=== PATIENT | female | born 1950 | race Asian ===

== ENCOUNTER 2016-09-28 00:37 | Emergency (ER) | payer OTHER ==
--- NOTE | 2016-09-28 03:30 | ED NURSING NOTES ---
Clinical Report - Nurses [facility] [address] [place] [address] 09/28/2016 0:38 Patient: MIYA WHITFIELD TRIAGE Triage time 00:42. Acuity: LEVEL 3. Chief Complaint: (L sided back pain). 01:04 09/28/16. Alert. No acute distress. SEPSIS SCREEN: Sepsis Screen. Negative (no infection suspected/documented). CHRISTINA COMA SCORE: [place] Coma Scale: 15- eyes open spontaneously (4); best verbal response- oriented x 4 (5); best motor response- obeys commands (6). --01:04 Maria Luisa Van R.N. 00:50 09/28/16. BP: 135/55. HR: 106. RR: 20. O2 saturation: 93%. Temp: 98.6 F. Pain level now: 02/17. --01:04 Maria Luisa Van R.N. <<STRICKEN ENTRY-- 00:50 09/28/16. BP: 135/55. HR: 106. RR: 16. O2 saturation: 93%. Temp: 98.6 F. Pain level now: 02/17. --01:04 Maria Luisa Van R.N. --END STRIKE>> Correction. --01:06 Maria Luisa Van R.N. Weight: 79.3 kg stated. Height/Length: 61 inches Per Patient. BMI: 33. --01:00 Maria Luisa Van R.N. Medications OxyCODONE HCl Oral. --00:54 Maria Luisa Van R.N. methylcarbomol. --00:55 Maria Luisa Van R.N. History Arrived by private vehicle. Historian: patient and family. Accompanied by (significant other). Onset. (one month). ( Patient states the back pain "used to come and go. But today it's like hell regardless of medication"). 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 PAST MEDICAL HX: Immunizations: up-to-date. SOCIAL HX: Smoker- current status unknown (patient states she smokes every once in a while). No alcohol use or drug use. FALL RISK ASSESSMENT: Fall risk assessment completed. No fall risk identified. NUTRITIONAL RISK ASSESSMENT: The nutritional risk assessment revealed no deficiencies. FUNCTIONAL ASSESSMENT: Functional assessment: no impairments noted. LEARNING NEEDS ASSESSMENT: The learning needs assessment revealed no barriers. SKIN INTEGRITY ASSESSMENT: Skin integrity risk assessment completed. No skin integrity risk identified. --01:04 Maria Luisa Van R.N. PROBLEMS: Cancer. Lung Disease. Diabetes Mellitus. SOB. Radiation for ca. . Chemo x 2 . Pneumonia. COPD - Chronic Obstructive Pulmonary Disease. Back pain with sciatica. 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 Hyperlipidemia. Anxiety Reaction. Asthma. Insomnia. Cough. Hyperglycemia. Diabeties. Hypertension. GERD. --00:59 Maria Luisa Van R.N. ADDITIONAL SURGERIES: Appendectomy. . --00:59 Maria Luisa Van R.N. Interventions ID band on patient. To treatment room. --01: Maria Luisa Van R.N. PHYSICAL ASSESSMENT 01:09/28/16. To room via wheelchair. GENERAL / NEURO / PSYCH: Alert. Oriented X 4. Appears in pain. HEENT: No facial asymmetry noted. Mucous membranes are pink. RESPIRATORY: Mild respiratory distress. Respirations not labored. Expiratory wheezes in the right and left upper lung. CVS: Capillary refill less than 2 seconds. Pulses within normal limits. GI / : Abdomen nontender and normal bowel sounds. SKIN: Skin intact. Skin is warm and dry. Normal skin turgor. --01:06 Maria Luisa Van R.N. NURSING PROGRESS NOTES 01:09/28/16. Two patient identifiers checked. Call light placed in reach. Side rails up x 1. Bed placed in lowest position. Brakes of bed on. Patient ready for evaluation- chart flagged and notification provided. --01:07 Maria Luisa Van R.N. Pulse oximeter and NIBP monitor placed on patient. --01: Maria Luisa Van R.N. 02:18 09/28/2016 Dilaudid (HYDROmorphone HCl PF) IM 0.5 mg given. Given in the right deltoid. Allergies verified, confirmed 5 rights and sedative warning given to the patient. --02:20 Maria Luisa Van R.N. 02:20 09/28/2016 Toradol (Ketorolac Tromethamine) IM 60 mg given. Given in the right anterior lateral thigh. Allergies verified and confirmed 5 rights. --02:20 Maria Luisa Van R.N. 02:45 09/28/16. BP: 126/74. HR: 98. RR: 17. O2 saturation: 95%. Temp: deferred. Pain level now: 0/10. --03:10 Maria Luisa Van R.N. Reassessment after medication administered. She reports no complaints. Overall patient status is improved- she states feels better. Patient informed about reason for wait and about plan of care. --03:10 Maria Luisa Van R.N. 03:11 09/28/2016 Dilaudid IM Response: no adverse reaction pain is gone now. The patient feels better. 09/28/2016 02:45 BP: 126/74. HR: 98. RR: 17. O2 saturation: 95%. Pain level now: 0/10. --03:11 Maria Luisa Van R.N. 03:11 09/28/2016 Toradol IM Response: no adverse reaction pain is gone now. The patient feels better. 09/28/2016 02:45 BP: 126/74. HR: 98. RR: 17. O2 saturation: 95%. Pain level now: 0/10. --03:11 Maria Luisa Van R.N. DISPOSITION / DISCHARGE 03:40 09/28/16. Condition at departure: improved and stable. The goals identified in the patient's plan of care were met. No learning barriers present. Discharge instructions provided and reviewed with the patient. Activity restrictions (light lifting) reviewed. Note given. Patient verbalized understanding. Written instructions provided in Burkinan. ( Follow up with your PCP in five days if you are not feeling better. Return if your symptoms worsen. Apply ice for twenty minutes at a time. Moist heat may help as well. Take an anti-inflammatory as needed and rest. Patient verbalized understanding and had no additional questions at this time.). The patient was discharged by the physician. She was discharged home and accompanied by scientist/engineer. She left the Emergency Department ambulatory and via private vehicle. Care Assistant driving. FALL RISK ASSESSMENT: Fall risk assessment completed. No fall risk identified. --04:04 Kya Darby 03:40 09/28/16. BP: 112/52. HR: 98. RR: 20. O2 saturation: 98% on room air. Pain level now: 0/10. --04:04 Kya Darby. Locked/Released at 09/28/2016 4:05 by Kya Darby,
--- NOTE | 2016-09-28 03:30 | ED ORDER SUMMARY ---
..... Patient: MIYA WHITFIELD OrderSheet [facility] VisitID: [id number] [address] [place] [address] 65y, F Registration Date/Time: 09/28/2016 ORDER SHEET Weight: 79.3 kg (stated) Allergies: Latex GENERAL ORDERS: Lumbar Spine 2 or 3V Urgent (02:00 09/28/2016 Ashley GRAHAM) (Ack 2:07 AMcQuoid ER Tech1) (2:12 RFay) MEDICATION ORDERS: Toradol IM 60 mg (NOW) (02:01 09/28/2016 Ashley GRAHAM) (Ack 2:11 RMarsden R.N.) (2:20 RMarsden R.N.) Dilaudid IM 0.5 mg (NOW) (02:01 09/28/2016 Ashley GRAHAM) (Ack 2:11 RMarsden R.N.) (2:20 RMarsden R.N.) IV FLUIDS: ORDER SHEET NOTES: [Electronically signed by Kya Darby (04:05 09/28/2016)] [Electronically signed by Yao Ludwig MD (22:06 10/01/2016)] [Electronically locked/signed by Kya Darby (04:09/28/2016)]
--- NOTE | 2016-09-28 03:30 | ED CLINICAL REPORT ---
Clinical Report - Physicians/Mid Levels [facility] [address] [place] [address] 09/28/2016 0:38 Patient: MIYA WHITFIELD Time Seen: 01:52 Sep 28 2016. Arrived- By private vehicle. Historian- patient. CPT: ER phys charges level 4 (#[id number]). HISTORY OF PRESENT ILLNESS Chief Complaint: BACK PAIN. It is described as being moderate in degree and in the area of the left lower lumbar spine and lower lumbar spine. The quality is noted to be sharp, aching, "pain" and similar to prior episodes. No radiation. Onset was today Onset. (one month). ( Patient states the back pain "used to come and go. But today it's like hell regardless of medication"). and it is still present. No bladder dysfunction, bowel dysfunction, sensory loss or motor loss. No other injury. Similar symptoms previously: Several times, milder. Recent medical care: Not recently seen/assessed. REVIEW OF SYSTEMS No fever, chills, eye irritation, difficulty with urination or urinary frequency. No hematuria, skin rash, sore throat, cough or difficulty breathing. No chest pain, abdominal pain, nausea, vomiting or diarrhea. No black stools or bloody stools. All systems otherwise negative, except as recorded above. PAST HISTORY Cancer. Lung Disease. Diabetes Mellitus. SOB. Radiation for ca. . Chemo x 2 . Pneumonia. COPD - Chronic Obstructive Pulmonary Disease. Back pain with sciatica. 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 Hyperlipidemia. Anxiety Reaction. Asthma. Insomnia. Cough. Hyperglycemia. Diabeties. Hypertension. GERD. --00:59 Maria Luisa Van R.N. ADDITIONAL SURGERIES: Appendectomy. . Medications: Albuterol Sulfate Inhalation. Albuterol Sulfate Inhalation. Albuterol Sulfate Inhalation. Atrovent HFA Inhalation. Benzonatate Oral 100 mg, daily. Centrum. Citalopram & Diet Manage Prod Oral (Miscellaneous 10 mg) 20mg (1.5tablets day). Cyclobenzaprine HCl Oral 5 mg, at bedtime. Docusate Sodium Oral (Capsule 250 mg) 1 capsule, BID. Fluticasone Propionate HFA Inhalation 500-50mcg/puff (one puff BID). Gabapentin Oral 300 mg (one in AM and 2 at PM). HydrOXYzine HCl Oral 25 mg, at bedtime as needed. Ibuprofen Oral (Tablet 800 mg) 1 tablet, as needed. Insulin Regular Human Injection, Taken on sliding scale. LORazepam Oral 1 mg, 2x a day as needed. Magnesium Oral 400 mg, daily. MetFORMIN HCl Oral (Tablet 1000 mg) 1 tablet, 2x a day. Nortriptyline HCl Oral 10 mg, at bedtime. OxyCODONE HCl Oral 5 mg, 1-2 tabs. methylcarbomol. OxyCODONE HCl Oral. Allergies: Latex. SOCIAL HISTORY Light tobacco smoker (cigarette)- less than 1/2 a pack per day. No alcohol use or drug use. ADDITIONAL NOTES The nursing notes have been reviewed. PHYSICAL EXAM Vital Signs: 09/28/2016 00:50 BP: 135/55. HR: 106. RR: 20. O2 saturation: 93%. Temp: 98.6 F. Pain level now: 02/17. Appearance: Alert. Appears to be in pain. Patient in moderate distress. HEENT: Normal external inspection. ENT: Pharynx normal. Neck: Normal inspection. Neck nontender. Painless ROM. CVS: Heart sounds normal. Pulses normal. Respiratory: No respiratory distress. Breath sounds normal. Abdomen: No visible injury. Soft and nontender. Bowel sounds normal. Back: Moderate soft tissue tenderness in the right lower and left lower lumbar area. Limited ROM in the back. No muscle spasm in the back, vertebral point tenderness or CVA tenderness. Skin: Skin warm. Normal skin color. No rash. Extremities: Extremities exhibit normal ROM. Extremities nontender. Neuro: Oriented X 3. Mood/affect normal. No motor deficit. No sensory deficit. Reflexes normal. LABS, X-RAYS, AND EKG LS-Spine X-rays: Degenerative joint disease. (Mild listhesis L4-5 level.). Views: AP, lateral and coned down view. Technique: good. The X-rays were independently viewed by me and interpreted contemporaneously by me. PROGRESS AND PROCEDURES Course of Care: toradol 60 mg IM Dilaudid 0.5 mg IM Patient is stable. Symptoms better. Patient/family counseled. Disposition: Discharged. Condition: stable and improved. CLINICAL IMPRESSION Acute and chronic nontraumatic back pain associated with degenerative disc disease of the lumbar spine. Sciatica present on the left. No radiculopathy or neurological deficit. Acute exacerbation of chronic low back pain with sciatica. INSTRUCTIONS Apply ice for 15-20 minutes three times a day for one days followed by moist heat 15-20 minutes three times a day for one weeks until better. Limit lifting. No strenuous activity. Warnings: SEDATIVE MEDICATION: You were given sedative medication during your visit. Do not drive or operate dangerous machinery. GENERAL WARNINGS: Return or contact your physician immediately if your condition worsens or changes unexpectedly, if not improving as expected, or if other problems arise. Your Current Medications: CONTINUE TAKING THE FOLLOWING MEDICATIONS: Albuterol Sulfate Inhalation. Albuterol Sulfate Inhalation. Albuterol Sulfate Inhalation. Atrovent HFA Inhalation. Benzonatate Oral : 100 mg daily. Centrum*. Citalopram & Diet Manage Prod Oral : Miscellaneous 10 mg, 20mg, 1.5tablets day. Cyclobenzaprine HCl Oral : 5 mg at bedtime. Docusate Sodium Oral : Capsule 250 mg, 1 capsule BID. Fluticasone Propionate HFA Inhalation : 500-50mcg/puff, one puff BID. Gabapentin Oral : 300 mg, one in AM and 2 at PM. HydrOXYzine HCl Oral : 25 mg at bedtime, prn. Ibuprofen Oral : Tablet 800 mg, 1 tablet, prn. Insulin Regular Human Injection : Sliding scale. LORazepam Oral : 1 mg 2x a day, prn. Magnesium Oral : 400 mg daily. MetFORMIN HCl Oral : Tablet 1000 mg, 1 tablet 2x a day. methylcarbomol*. Nortriptyline HCl Oral : 10 mg at bedtime. OxyCODONE HCl Oral. OxyCODONE HCl Oral : 5 mg 1-2 tabs. OTC Medications: Take ibuprofen (Advil, Nuprin, etc.) according to label instructions. Available over the counter. Follow-up: Follow up with your doctor in five days if not better. Understanding of the discharge instructions verbalized by patient. (Electronically signed by Yao Ludwig MD 10/01/2016 22:06)
--- NOTE | 2016-09-28 03:30 | ED NURSING NOTES ---
Clinical Report - Nurses [facility] [address] [place] [address] 09/28/2016 0:38 Patient: MIYA WHITFIELD TRIAGE Triage time 00:42. Acuity: LEVEL 3. Chief Complaint: (L sided back pain). 01:04 09/28/16. Alert. No acute distress. SEPSIS SCREEN: Sepsis Screen. Negative (no infection suspected/documented). CHRISTINA COMA SCORE: [place] Coma Scale: 15- eyes open spontaneously (4); best verbal response- oriented x 4 (5); best motor response- obeys commands (6). --01:04 Maria Luisa Van R.N. 00:50 09/28/16. BP: 135/55. HR: 106. RR: 20. O2 saturation: 93%. Temp: 98.6 F. Pain level now: 02/17. --01:04 Maria Luisa Van R.N. <<STRICKEN ENTRY-- 00:50 09/28/16. BP: 135/55. HR: 106. RR: 16. O2 saturation: 93%. Temp: 98.6 F. Pain level now: 02/17. --01:04 Maria Luisa Van R.N. --END STRIKE>> Correction. --01:06 Maria Luisa Van R.N. Weight: 79.3 kg stated. Height/Length: 61 inches Per Patient. BMI: 33. --01:00 Maria Luisa aVn R.N. Medications OxyCODONE HCl Oral. --00:54 Maria Luisa Van R.N. methylcarbomol. --00:55 Maria Luisa Van R.N. History Arrived by private vehicle. Historian: patient and family. Accompanied by (significant other). Onset. (one month). ( Patient states the back pain "used to come and go. But today it's like hell regardless of medication"). 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 PAST MEDICAL HX: Immunizations: up-to-date. SOCIAL HX: Smoker- current status unknown (patient states she smokes every once in a while). No alcohol use or drug use. FALL RISK ASSESSMENT: Fall risk assessment completed. No fall risk identified. NUTRITIONAL RISK ASSESSMENT: The nutritional risk assessment revealed no deficiencies. FUNCTIONAL ASSESSMENT: Functional assessment: no impairments noted. LEARNING NEEDS ASSESSMENT: The learning needs assessment revealed no barriers. SKIN INTEGRITY ASSESSMENT: Skin integrity risk assessment completed. No skin integrity risk identified. --01:04 Maria Luisa Van R.N. PROBLEMS: Cancer. Lung Disease. Diabetes Mellitus. SOB. Radiation for ca. . Chemo x 2 . Pneumonia. COPD - Chronic Obstructive Pulmonary Disease. Back pain with sciatica. 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 Hyperlipidemia. Anxiety Reaction. Asthma. Insomnia. Cough. Hyperglycemia. Diabeties. Hypertension. GERD. --00:59 Maria Luisa Van R.N. ADDITIONAL SURGERIES: Appendectomy. . --00:59 Maria Luisa Van R.N. Interventions ID band on patient. To treatment room. --01: Maria Luisa Van R.N. PHYSICAL ASSESSMENT 01:09/28/16. To room via wheelchair. GENERAL / NEURO / PSYCH: Alert. Oriented X 4. Appears in pain. HEENT: No facial asymmetry noted. Mucous membranes are pink. RESPIRATORY: Mild respiratory distress. Respirations not labored. Expiratory wheezes in the right and left upper lung. CVS: Capillary refill less than 2 seconds. Pulses within normal limits. GI / : Abdomen nontender and normal bowel sounds. SKIN: Skin intact. Skin is warm and dry. Normal skin turgor. --01:06 Maria Luisa Van R.N. NURSING PROGRESS NOTES 01:09/28/16. Two patient identifiers checked. Call light placed in reach. Side rails up x 1. Bed placed in lowest position. Brakes of bed on. Patient ready for evaluation- chart flagged and notification provided. --01:07 Maria Luisa Van R.N. Pulse oximeter and NIBP monitor placed on patient. --01: Maria Luisa Van R.N. 02:18 09/28/2016 Dilaudid (HYDROmorphone HCl PF) IM 0.5 mg given. Given in the right deltoid. Allergies verified, confirmed 5 rights and sedative warning given to the patient. --02:20 Maria Luisa Van R.N. 02:20 09/28/2016 Toradol (Ketorolac Tromethamine) IM 60 mg given. Given in the right anterior lateral thigh. Allergies verified and confirmed 5 rights. --02:20 Maria Luisa Van R.N. 02:45 09/28/16. BP: 126/74. HR: 98. RR: 17. O2 saturation: 95%. Temp: deferred. Pain level now: 0/10. --03:10 Maria Luisa Van R.N. Reassessment after medication administered. She reports no complaints. Overall patient status is improved- she states feels better. Patient informed about reason for wait and about plan of care. --03:10 Maria Luisa Van R.N. 03:11 09/28/2016 Dilaudid IM Response: no adverse reaction pain is gone now. The patient feels better. 09/28/2016 02:45 BP: 126/74. HR: 98. RR: 17. O2 saturation: 95%. Pain level now: 0/10. --03:11 Maria Luisa Van R.N. 03:11 09/28/2016 Toradol IM Response: no adverse reaction pain is gone now. The patient feels better. 09/28/2016 02:45 BP: 126/74. HR: 98. RR: 17. O2 saturation: 95%. Pain level now: 0/10. --03:11 Maria Luisa Van R.N. DISPOSITION / DISCHARGE 03:40 09/28/16. Condition at departure: improved and stable. The goals identified in the patient's plan of care were met. No learning barriers present. Discharge instructions provided and reviewed with the patient. Activity restrictions (light lifting) reviewed. Note given. Patient verbalized understanding. Written instructions provided in Bahamian. ( Follow up with your PCP in five days if you are not feeling better. Return if your symptoms worsen. Apply ice for twenty minutes at a time. Moist heat may help as well. Take an anti-inflammatory as needed and rest. Patient verbalized understanding and had no additional questions at this time.). The patient was discharged by the physician. She was discharged home and accompanied by marble coper. She left the Emergency Department ambulatory and via private vehicle. Hydrotherapist driving. FALL RISK ASSESSMENT: Fall risk assessment completed. No fall risk identified. --04:04 Kya Darby 03:40 09/28/16. BP: 112/52. HR: 98. RR: 20. O2 saturation: 98% on room air. Pain level now: 0/10. --04:04 Kya Darby. Locked/Released at 09/28/2016 4:05 by Kya Darby,
--- NOTE | 2016-09-28 03:30 | ED ORDER SUMMARY ---
..... Patient: MIYA WHITFIELD OrderSheet [facility] VisitID: [id number] [address] [place] [address] 65y, F Registration Date/Time: 09/28/2016 ORDER SHEET Weight: 79.3 kg (stated) Allergies: Latex GENERAL ORDERS: Lumbar Spine 2 or 3V Urgent (02:00 09/28/2016 Ashley GRAHAM) (Ack 2:07 AMcQuoid ER Tech1) (2:12 RFay) MEDICATION ORDERS: Toradol IM 60 mg (NOW) (02:01 09/28/2016 Ashley GRAHAM) (Ack 2:11 RMarsden R.N.) (2:20 RMarsden R.N.) Dilaudid IM 0.5 mg (NOW) (02:01 09/28/2016 Ashley GRAHAM) (Ack 2:11 RMarsden R.N.) (2:20 RMarsden R.N.) IV FLUIDS: ORDER SHEET NOTES: [Electronically signed by Kya Darby (04:05 09/28/2016)] [Electronically signed by Yao Ludwig MD (22:06 10/01/2016)] [Electronically locked/signed by Kya Darby (04:09/28/2016)]
--- NOTE | 2016-09-28 06:05 | DIAGNOSTIC IMAGING REPORT ---
PROCEDURE: XR LUMBAR SPINE 2 OR 3 VIEWS INDICATION: LOWER BACK PAIN TECHNIQUE: Three views. COMPARISON: None. FINDINGS: There is a minimal levoscoliosis with moderate degenerative change of the lower lumbar facet joints. There is mild disc space narrowing at L4-5 with grade 1 (5 mm) degenerative listhesis of L4 on L5. The rest of the osseous structures and disc spaces are normal. No evidence of an acute process or fracture. There are multiple calcified gallstones. IMPRESSION: 1. Minimal levoscoliosis and moderate degenerative changes of the lumbar spine. 2. Grade 1 degenerative listhesis of L4-L5. 3. Cholelithiasis. 4. Findings discussed with Dr. Yao Ludwig.
--- NOTE | 2016-10-01 22:06 | ED DISCHARGE INSTRUCTIONS ---
Patient: MIYA WHITFIELD General Instructions [facility] VisitID: [id number] [place] [address] 65y, F Registration Date/Time: 09/28/2016 Acute and chronic nontraumatic back pain associated with degenerative disc disease of the lumbar spine. Sciatica present on the left. No radiculopathy or neurological deficit. Acute exacerbation of chronic low back pain with sciatica. INSTRUCTIONS Apply ice for 15-20 minutes three times a day for one days followed by moist heat 15-20 minutes three times a day for one weeks until better. Limit lifting. No strenuous activity. Warnings: SEDATIVE MEDICATION: You were given sedative medication during your visit. Do not drive or operate dangerous machinery. GENERAL WARNINGS: Return or contact your physician immediately if your condition worsens or changes unexpectedly, if not improving as expected, or if other problems arise. Your Current Medications: CONTINUE TAKING THE FOLLOWING MEDICATIONS: Albuterol Sulfate Inhalation. Albuterol Sulfate Inhalation. Albuterol Sulfate Inhalation. Atrovent HFA Inhalation. Benzonatate Oral : 100 mg daily. Centrum*. Citalopram & Diet Manage Prod Oral : Miscellaneous 10 mg, 20mg, 1.5tablets day. Cyclobenzaprine HCl Oral : 5 mg at bedtime. Docusate Sodium Oral : Capsule 250 mg, 1 capsule BID. Fluticasone Propionate HFA Inhalation : 500-50mcg/puff, one puff BID. Gabapentin Oral : 300 mg, one in AM and 2 at PM. HydrOXYzine HCl Oral : 25 mg at bedtime, prn. Ibuprofen Oral : Tablet 800 mg, 1 tablet, prn. Insulin Regular Human Injection : Sliding scale. LORazepam Oral : 1 mg 2x a day, prn. Magnesium Oral : 400 mg daily. MetFORMIN HCl Oral : Tablet 1000 mg, 1 tablet 2x a day. methylcarbomol*. Nortriptyline HCl Oral : 10 mg at bedtime. OxyCODONE HCl Oral. OxyCODONE HCl Oral : 5 mg 1-2 tabs. OTC Medications: Take ibuprofen (Advil, Nuprin, etc.) according to label instructions. Available over the counter. Follow-up: Follow up with your doctor in five days if not better. Understanding of the discharge instructions verbalized by patient. ADDITIONAL INFORMATION Sciatica Sciatica ("Lumbar Radiculopathy") causes a pain that spreads from the lower back down into the buttock, hip and leg. Sometimes leg pain can occur without any back pain. Sciatica is due to irritation or pressure on a spinal nerve as it comes out of the spinal canal. This is most often due to a bulge or rupture of a nearby spinal disk (the cartilage cushion between each spinal bone), which presses on a nearby nerve. Other causes include spinal stenosis (narrowing of the spinal canal) and spasm of the pyriform muscle (a muscle in the buttocks that the sciatic nerve passes through). Sciatica may begin after a sudden twisting/bending force (such as in a car accident), or sometimes after a simple awkward movement. In either case, muscle spasm is commonly present and contributes to the pain. The diagnosis of sciatica is made from the symptoms and physical exam. Unless you had a physical injury (such as a car accident or fall), X-rays are usually not ordered for the initial evaluation of sciatica because the nerves and disks cannot be seen on an x-ray. If signs of a compressed nerve are present (for example, loss of tendon reflex or strength in the leg), an MRI (magnetic resonance imaging) scan will need to be scheduled as an outpatient. Most sciatica (80-90%) gets better with medicine, exercise, physical therapy. If symptoms continue after at least three months of medical treatment, surgery may be considered. Home Care: You may need to stay in bed the first few days. But, as soon as possible, begin sitting or walking to avoid problems with prolonged bed rest. When in bed, try to find a position of comfort. A firm mattress is best. Try lying flat on your back with pillows under your knees. You can also try lying on your side with your knees bent up towards your chest and a pillow between your knees. Avoid prolonged sitting. This puts more stress on the lower back than standing or walking. Some persons find relief with heat (hot shower, hot bath or heating pad) and massage, while others prefer cold packs (crushed or cubed ice in a plastic bag, wrapped in a towel). Try both and use the method that feels best for 20 minutes several times a day. You may use acetaminophen (Tylenol) or ibuprofen (Motrin, Advil) to control pain, unless another pain medicine was prescribed. [ NOTE: If you have chronic liver or kidney disease or ever had a stomach ulcer or GI bleeding, talk with your doctor before using these medicines.] Be aware of safe lifting methods and do not lift anything over 15 pounds until all the pain is gone. Follow Up with your doctor or this facility if your symptoms do not start to improve after one week. Physical therapy or further testing may be needed. [NOTE: If X-rays were taken, they will be reviewed by a radiologist. You will be notified of any new findings that may affect your care.] Get Prompt Medical Attention if any of the following occur: Pain becomes worse, not controlled by the prescribed medicine Weakness or numbness in one or both legs Numbness in the groin, genital area Loss of bowel or bladder control You have been given the following additional information: Back Pain W/ Sciatica Limit lifting. No strenuous activity. (Electronically signed by Yao Ludwig MD 10/01/2016 22:06)
--- NOTE | 2016-10-01 22:06 | ED MAR SUMMARY ---
..... Medication Administration Record [facility] [address] [place] [address] Patient: MIYA WHITFIELD Visit ID: [id number] 65y, F Weight: 79.3 kg Height/Length: 61 in BMI: 33 ALLERGIES: Latex Given 02:18 09/28/2016 Maria Luisa Van, RMayiN. Medication Administered: DILAUDID [IM] (HYDROMORPHONE HCL PF), Dose: 0.5 mg IM. Medication Ordered: Dilaudid IM 0.5 mg (NOW). Given 02:20 09/28/2016 Maria Luisa Van, R.N. Medication Administered: TORADOL [IM] (KETOROLAC TROMETHAMINE), Dose: 60 mg IM. Medication Ordered: Toradol IM 60 mg (NOW).
--- NOTE | 2016-10-01 22:06 | ED MED RECONCILIATION SUMMARY ---
Patient: MIYA WHITFIELD Medication Reconciliation Report [facility] VisitID: [id number] [address] [place] [address] 65y, F Registration Date/Time: 09/28/2016 Weight: 79.3 kg Height/Length: 61 in. BMI: 33.0 ALLERGIES: Latex The patient's Home Medications are listed below: CONTINUE TAKING THE FOLLOWING MEDICATIONS: Albuterol Sulfate Inhalation Albuterol Sulfate Inhalation Albuterol Sulfate Inhalation Atrovent HFA Inhalation Benzonatate Oral 100 mg, daily Centrum Citalopram & Diet Manage Prod Oral (10 mg) 20mg, 1.5tablets day Cyclobenzaprine HCl Oral 5 mg, at bedtime Docusate Sodium Oral (250 mg) 1 capsule, BID Fluticasone Propionate HFA Inhalation 500-50mcg/puff, one puff BID Gabapentin Oral 300 mg, one in AM and 2 at PM HydrOXYzine HCl Oral 25 mg, at bedtime Ibuprofen Oral (800 mg) 1 tablet Insulin Regular Human Injection LORazepam Oral 1 mg, 2x a day Magnesium Oral 400 mg, daily MetFORMIN HCl Oral (1000 mg) 1 tablet, 2x a day methylcarbomol Nortriptyline HCl Oral 10 mg, at bedtime OxyCODONE HCl Oral OxyCODONE HCl Oral 5 mg, 1-2 tabs The source(s) of the original Home Medication information: Not obtained. The following Medications were given to the patient in the Emergency Department: Dilaudid [IM] IM 0.5 mg, administered: 09/28/2016 2:18:00 AM Toradol [IM] IM 60 mg, administered: 09/28/2016 2:20:00 AM The following Medications were prescribed to the patient: Take ibuprofen (Advil, Nuprin, etc.) according to label instructions. Available over the counter. -- Yao Ludwig MD
--- NOTE | 2016-10-01 22:06 | ED MAR SUMMARY ---
..... Medication Administration Record [facility] [address] [place] [address] Patient: MIYA WHITFIELD Visit ID: [id number] 65y, F Weight: 79.3 kg Height/Length: 61 in BMI: 33 ALLERGIES: Latex Given 02:18 09/28/2016 Maria Luisa Van, RMayiN. Medication Administered: DILAUDID [IM] (HYDROMORPHONE HCL PF), Dose: 0.5 mg IM. Medication Ordered: Dilaudid IM 0.5 mg (NOW). Given 02:20 09/28/2016 Maria Luisa Van, R.N. Medication Administered: TORADOL [IM] (KETOROLAC TROMETHAMINE), Dose: 60 mg IM. Medication Ordered: Toradol IM 60 mg (NOW).
--- NOTE | 2016-10-01 22:06 | ED MED RECONCILIATION SUMMARY ---
Patient: MIYA WHITFIELD Medication Reconciliation Report [facility] VisitID: [id number] [address] [place] [address] 65y, F Registration Date/Time: 09/28/2016 Weight: 79.3 kg Height/Length: 61 in. BMI: 33.0 ALLERGIES: Latex The patient's Home Medications are listed below: CONTINUE TAKING THE FOLLOWING MEDICATIONS: Albuterol Sulfate Inhalation Albuterol Sulfate Inhalation Albuterol Sulfate Inhalation Atrovent HFA Inhalation Benzonatate Oral 100 mg, daily Centrum Citalopram & Diet Manage Prod Oral (10 mg) 20mg, 1.5tablets day Cyclobenzaprine HCl Oral 5 mg, at bedtime Docusate Sodium Oral (250 mg) 1 capsule, BID Fluticasone Propionate HFA Inhalation 500-50mcg/puff, one puff BID Gabapentin Oral 300 mg, one in AM and 2 at PM HydrOXYzine HCl Oral 25 mg, at bedtime Ibuprofen Oral (800 mg) 1 tablet Insulin Regular Human Injection LORazepam Oral 1 mg, 2x a day Magnesium Oral 400 mg, daily MetFORMIN HCl Oral (1000 mg) 1 tablet, 2x a day methylcarbomol Nortriptyline HCl Oral 10 mg, at bedtime OxyCODONE HCl Oral OxyCODONE HCl Oral 5 mg, 1-2 tabs The source(s) of the original Home Medication information: Not obtained. The following Medications were given to the patient in the Emergency Department: Dilaudid [IM] IM 0.5 mg, administered: 09/28/2016 2:18:00 AM Toradol [IM] IM 60 mg, administered: 09/28/2016 2:20:00 AM The following Medications were prescribed to the patient: Take ibuprofen (Advil, Nuprin, etc.) according to label instructions. Available over the counter. -- Yao Ludwig MD
== END 2016-09-28 03:40 | disposition home or self-care (01) ==
LOC: ED SRH 00:37
DX: M51.16 Intervertebral disc disorders with radiculopathy, lumbar region (principal); G89.29 Other chronic pain; E11.9 Type 2 diabetes mellitus without complications; I10 Essential (primary) hypertension; K21.9 Gastro-esophageal reflux disease without esophagitis; J45.909 Unspecified asthma, uncomplicated; Z79.84 Long term (current) use of oral hypoglycemic drugs; Z79.4 Long term (current) use of insulin

== ENCOUNTER 2016-10-07 22:53 | Emergency (ER) | payer OTHER ==
[2016-10-07] MEDS ORDERED: ALBUTEROL HFA60 DOSE IN (23:59)
[2016-10-08] MEDS ORDERED: CENTRUM1 TAB PO
[2016-10-08] MEDS ORDERED: BENZONATATE100 MG PO
[2016-10-08] MEDS ORDERED: CITALOPRAM HYDR10 MG PO (00:01)
[2016-10-08] MEDS ORDERED: CYCLOBENZAPRINE5 MG PO (00:01)
[2016-10-08] MEDS ORDERED: DSS250 MG PO (00:02)
[2016-10-08] MEDS ORDERED: FLOVENT DISKU250 MCG IN (00:04)
[2016-10-08] MEDS ORDERED: GABAPENTIN300 MG PO (00:05)
[2016-10-08] MEDS ORDERED: GABAPENTIN600 MG PO (00:05)
[2016-10-08] MEDS ORDERED: IBUPROFEN600 MG PO (00:06)
[2016-10-08] MEDS ORDERED: HYDROXYZINE HCL25 MG PO (00:06)
[2016-10-08] MEDS ORDERED: HUMALIN R100 UNITS/ (00:07)
[2016-10-08] MEDS ORDERED: ATIVAN1 MG PO (00:07)
[2016-10-08] MEDS ORDERED: MAGNESIUM400 M1 PO (00:08)
[2016-10-08] MEDS ORDERED: NORTRIPTYLINE H10 MG PO (00:09)
[2016-10-08] MEDS ORDERED: METFORMIN HCL500 MG PO (00:09)
--- NOTE | 2016-10-08 01:28 | ED ORDER SUMMARY ---
..... Patient: MIYA WHITFIELD OrderSheet [facility] VisitID: [id number] [place] [address] 65y, F Registration Date/Time: 10/07/2016 ORDER SHEET Weight: 78.4 kg Allergies: Latex GENERAL ORDERS: Amylase Urgent (23:15 10/07/2016 EBonham per protocol) (Ack 23:17 CHagerty ER Pug Mill Operator Helper) (23:31 EBonham) CBC w Diff Urgent (23:15 10/07/2016 EBonham per protocol) (Ack 23:17 CHagerty ER [employer] Operator Helper) (23:31 EBonham) CMP Urgent (23:15 10/07/2016 EBonham per protocol) (Ack 23:17 CHagerty ER [employer] Operator Helper) (23:31 EBonham) Lipase Urgent (23:15 10/07/2016 EBonham per protocol) (Ack 23:17 CHagerty ER [employer] Operator Helper) (23:31 EBonham) UA-Culture if indicated Urgent (23:15 10/07/2016 EBonham per protocol) (Ack 23:17 CHagerty ER [employer] Operator Helper) (23:36 EBonham) EKG - ER Stat (23:15 10/07/2016 EBonham per protocol) (Ack 23:17 CHagerty ER [employer] Operator Helper) (23:24 Joanaekimana) POC Glucose (23:15 10/07/2016 EBonham per protocol) (23:36 EBonham) Troponin-I Urgent (23:16 10/07/2016 EBonham per protocol) (Ack 23:18 CHagerty ER [employer] Operator Helper) (23:31 EBonham) CPK Urgent (23:16 10/07/2016 EBonham per protocol) (Ack 23:18 CHagerty ER [employer] Operator Helper) (23:31 EBonham) Chest 1V Urgent (23:17 10/07/2016 Bebe GRAHAM) (Ack 23:18 CHagerty ER [employer] Operator Helper) (0:23 GUndallas) MEDICATION ORDERS: Levaquin PO 750 mg (NOW) (00:44 10/08/2016 Bebe GRAHAM) (0:50 EBonham) IV FLUIDS: IV Saline Lock (23:15 10/07/2016 EBonham per protocol) (23:31 EBonham) IV NS : initial bolus 1000 mL (1000 mL/hr), then none - for X1 (NOW); Urgent (00:44 10/08/2016 Bebe GRAHAM) (0:50 EBonham) ORDER SHEET NOTES: [Electronically signed by Reebka Elliott R.N. (:44 10/08/2016)] [Electronically signed by Jamal Naranjo MD (21:53 10/08/2016)] [Electronically locked/signed by Rebeka Elliott R.N. (:44 10/08/2016)]
--- NOTE | 2016-10-08 01:28 | ED NURSING NOTES ---
Clinical Report - Nurses [facility] [address] [place] [address] 10/07/2016 22:54 Patient: MIYA WHITFIELD TRIAGE Triage time 2305. Acuity: LEVEL 3. Chief Complaint: (weakness, sweats, pain in left buttock running down leg). Alert. --23:14 Neisha Ayala 23:09 10/07/16. BP: 143/68. HR: 117. RR: 18. O2 saturation: 95%. Temp: 98.9 F. Pain level now 12/18. --23:14 Neisha Ayala. Weight: 78.4 kg. Height/Length: 61 inches. BMI: 32.7. --23:08 Neisha Ayala. Medications Albuterol Sulfate Inhalation. Atrovent HFA Inhalation. Benzonatate Oral 100 mg, daily. Centrum. Citalopram & Diet Manage Prod Oral (Miscellaneous 10 mg) 20mg (1.5tablets day). Cyclobenzaprine HCl Oral 5 mg, at bedtime. Docusate Sodium Oral (Capsule 250 mg) 1 capsule, BID. Fluticasone Propionate HFA Inhalation 500-50mcg/puff (one puff BID). Gabapentin Oral 300 mg (one in AM and 2 at PM). HydrOXYzine HCl Oral 25 mg, at bedtime as needed. Ibuprofen Oral (Tablet 800 mg) 1 tablet, as needed. Insulin Regular Human Injection, Taken on sliding scale. LORazepam Oral 1 mg, 2x a day as needed. Magnesium Oral 400 mg, daily. MetFORMIN HCl Oral (Tablet 1000 mg) 1 tablet, 2x a day. methylcarbomol. Nortriptyline HCl Oral 10 mg, at bedtime. OxyCODONE HCl Oral. --23:12 Neisha Ayala. Allergies Latex. --23:12 Neisha Ayala. History Arrived by private vehicle. Historian: patient. Accompanied by family. This started today. ( Pt sts she was in the car today and felt very sweaty, she thought her blood sugar was low and she drank some OJ, when she got home, pt vomited a couple of times and then checked her blood sugar which was 150, she ate some crackers which she kept down, pt c/o feeling weak and tired, and has a pain in her left buttock that runs down her leg she feels is new). 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 --23:14 Neisha Ayala. PROBLEMS: Back Pain. Cancer. Lung Disease. Diabetes Mellitus. SOB. Radiation for ca. . Chemo x 2 . Pneumonia. COPD - Chronic Obstructive Pulmonary Disease. Back pain with sciatica. 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 Hyperlipidemia. Anxiety Reaction. Asthma. Insomnia. Cough. Hyperglycemia. Diabeties. Hypertension. GERD. --23:13 Neisha Ayala. ADDITIONAL SURGERIES: Appendectomy. . --23:13 Neisha Ayala. Interventions ID band on patient. To treatment room. --23:14 Neisha Ayala. PHYSICAL ASSESSMENT Ambulatory to room. GENERAL / NEURO / PSYCH: Alert. Oriented X 4. Appears in distress. HEENT: Pupils equal, round and reactive to light. No facial asymmetry noted. Mucous membranes are pink. RESPIRATORY: Respirations not labored. Chest nontender. Breath sounds within normal limits. CVS: Cardiac rhythm: sinus tachycardia. Capillary refill less than 2 seconds. Pulses within normal limits. GI / : Abdominal distention. Abdomen soft. SKIN: Skin intact. Skin is warm and dry. Normal skin turgor. --23:14 Neisha Ayala. NURSING PROGRESS NOTES Monitoring of patient in place. Reassurance given. Bed placed in lowest position. Brakes of bed on. Patient ready for evaluation- chart flagged. --23:14 Neisha Ayala EKG time: (2230). EKG was ordered, performed by a tech and shown to the ED physician. --23:23 Nury Sifuenets 23:31 10/07/2016 Site #1 started via IV in the right antecubital space with an 20g angiocath, with aseptic technique and good blood return; one attempt. Blood drawn: rainbow set. Labeled in the presence of the patient and sent to the lab. Saline lock flushed with 10 mL saline. --23:31 Neisha Ayala The patient is sleeping. Overall patient status is the same- she states feels the same. --00:33 Neisah Ayala 00:33 10/08/16. BP: 105/56. HR: 115. RR: 16. --00:33 Jamie Neisha 00:50 10/08/2016 Started bag #1 1000 mL IV Fluids IV NS (Saline); bolus of 1000 mL wide open via site #1. Allergies verified and confirmed 5 rights. IV patency established. IV site checked: no pain, redness, or swelling. IV flushed thoroughly pre- and post-medication administration. --00:50 Neisha Ayala 00:50 10/08/2016 Levaquin (Levofloxacin) PO 750 mg given. Allergies verified and confirmed 5 rights. --00:50 Neisha Ayala Care transferred and report received. --01:27 Rebeka Elliott R.N. DISPOSITION / DISCHARGE Condition at departure: stable. No learning barriers present. Discharge instructions provided and reviewed with the patient. Reviewed medication(s) side effects, precautions, dosing and course information. Prescription(s) given to the patient. Patient verbalized understanding. Written instructions provided in Estonian. The patient was discharged home. She left the Emergency Department ambulatory and via private vehicle. Spouse driving. --01:42 Rebeka Elliott R.N. 01:42 10/08/16. BP: 108/55. HR: 114. RR: 16. O2 saturation: 93% on room air. Temp: deferred. Sanchez-Johnson pain scale: 2/10. --01:42 Rebeka Elliott R.N. 01:43 10/08/2016 Site #1 removed upon discharge. Catheter intact. Manual pressure and bandage applied. --01:43 Rebeka Elliott R.N. 01:43 10/08/2016 IV Fluids IV NS Discontinued: bag #1 STOPPED. Total amount infused: 600 mL. IV patency established. IV site checked: no pain, redness, or swelling. IV flushed thoroughly. --01:43 Rebeka Elliott R.N. ( pt calling , will wait for him to pick her up.). --01:44 Rebeka Elliott R.N. Locked/Released at 10/08/2016 1:44 by Rebeka Elliott R.N.
--- NOTE | 2016-10-08 01:28 | ED ORDER SUMMARY ---
..... Patient: MIYA WHITFIELD OrderSheet [facility] VisitID: [id number] [place] [address] 65y, F Registration Date/Time: 10/07/2016 ORDER SHEET Weight: 78.4 kg Allergies: Latex GENERAL ORDERS: Amylase Urgent (23:15 10/07/2016 EBonham per protocol) (Ack 23:17 CHagerty ER Bulk Station Agent) (23:31 EBonham) CBC w Diff Urgent (23:15 10/07/2016 EBonham per protocol) (Ack 23:17 CHagerty ER Bulk Station Agent) (23:31 EBonham) CMP Urgent (23:15 10/07/2016 EBonham per protocol) (Ack 23:17 CHagerty ER Bulk Station Agent) (23:31 EBonham) Lipase Urgent (23:15 10/07/2016 EBonham per protocol) (Ack 23:17 CHagerty ER Bulk Station Agent) (23:31 EBonham) UA-Culture if indicated Urgent (23:15 10/07/2016 EBonham per protocol) (Ack 23:17 CHagerty ER Bulk Station Agent) (23:36 EBonham) EKG - ER Stat (23:15 10/07/2016 EBonham per protocol) (Ack 23:17 CHagerty ER Bulk Station Agent) (23:24 Joanaekimana) POC Glucose (23:15 10/07/2016 EBonham per protocol) (23:36 EBonham) Troponin-I Urgent (23:16 10/07/2016 EBonham per protocol) (Ack 23:18 CHagerty ER Bulk Station Agent) (23:31 EBonham) CPK Urgent (23:16 10/07/2016 EBonham per protocol) (Ack 23:18 CHagerty ER Bulk Station Agent) (23:31 EBonham) Chest 1V Urgent (23:17 10/07/2016 Bebe GRAHAM) (Ack 23:18 CHagerty ER Bulk Station Agent) (0:23 GUndallas) MEDICATION ORDERS: Levaquin PO 750 mg (NOW) (00:44 10/08/2016 Bebe GRAHAM) (0:50 EBonham) IV FLUIDS: IV Saline Lock (23:15 10/07/2016 EBonham per protocol) (23:31 EBonham) IV NS : initial bolus 1000 mL (1000 mL/hr), then none - for X1 (NOW); Urgent (00:44 10/08/2016 Bebe GRAHAM) (0:50 EBonham) ORDER SHEET NOTES: [Electronically signed by Rebeka Elliott R.N. (:44 10/08/2016)] [Electronically signed by Jamal Naranjo MD (21:53 10/08/2016)] [Electronically locked/signed by Rebeka Elliott R.N. (:44 10/08/2016)]
--- NOTE | 2016-10-08 01:28 | ED CLINICAL REPORT ---
Clinical Report - Physicians/Mid Levels [facility] [address] [place] [address] 10/07/2016 22:54 Patient: MIYA WHITFIELD Time Seen: 23:16. Arrived- By private vehicle. Historian- patient. HISTORY OF PRESENT ILLNESS Chief Complaint: VOMITING. This started just prior to arrival and is still present. It was abrupt in onset. No recent travel. She has had nausea. She has had vomiting. The vomiting has occurred several times. No blood-tinged emesis or coffee-grounds emesis. No abdominal pain, flank pain, history of possible bad food exposure or known contact with a sick individual. Has not recently been on antibiotics. REVIEW OF SYSTEMS The patient has had chills, fatigue and back pain (L sided) and experienced sweats. No calf pain, chest pain, cough, difficulty breathing or pedal edema. No palpitations. She has had urgency and frequency. No painful urination. She has an MRI pending for low back pain that has recently started radiating down her L leg. All systems otherwise negative, except as recorded above. PAST HISTORY Problems: Back Pain. Cancer. Lung Disease. Diabetes Mellitus. SOB. Radiation for ca. . Chemo x 2 . Pneumonia. COPD - Chronic Obstructive Pulmonary Disease. Back pain with sciatica. 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 Hyperlipidemia. Anxiety Reaction. Asthma. Insomnia. Cough. Hyperglycemia. Diabeties. Hypertension. GERD. Additional Surgeries: Appendectomy. . Medications: Albuterol Sulfate Inhalation. Atrovent HFA Inhalation. Benzonatate Oral 100 mg, daily. Centrum. Citalopram & Diet Manage Prod Oral (Miscellaneous 10 mg) 20mg (1.5tablets day). Cyclobenzaprine HCl Oral 5 mg, at bedtime. Docusate Sodium Oral (Capsule 250 mg) 1 capsule, BID. Fluticasone Propionate HFA Inhalation 500-50mcg/puff (one puff BID). Gabapentin Oral 300 mg (one in AM and 2 at PM). HydrOXYzine HCl Oral 25 mg, at bedtime as needed. Ibuprofen Oral (Tablet 800 mg) 1 tablet, as needed. Insulin Regular Human Injection, Taken on sliding scale. LORazepam Oral 1 mg, 2x a day as needed. Magnesium Oral 400 mg, daily. MetFORMIN HCl Oral (Tablet 1000 mg) 1 tablet, 2x a day. methylcarbomol. Nortriptyline HCl Oral 10 mg, at bedtime. OxyCODONE HCl Oral. Allergies: Latex. SOCIAL HISTORY Current some days smoker (cigarette). No alcohol use or drug use. FAMILY HISTORY Diabetes in grandparent; heart disease in first-degree relative (father); cancer in first-degree relative (sibling) and grandparent. ADDITIONAL NOTES The nursing notes have been reviewed. PHYSICAL EXAM Vital Signs: 10/07/2016 23:09 BP: 143/68. HR: 117. RR: 18. O2 saturation: 95%. Temp: 98.9 F. Have been reviewed. Appearance: Alert. Eyes: Pupils equal, round and reactive to light. ENT: Pharynx normal. Neck: Neck supple. CVS: Tachycardia. Heart sounds normal. Respiratory: No respiratory distress. Breath sounds normal. Abdomen: Soft and nontender. Bowel sounds normal. No organomegaly. No mass. Obese. Back: Normal inspection. Skin: Skin warm and dry. Normal skin color. No rash. Normal skin turgor. Extremities: Extremities exhibit normal ROM. No calf tenderness. No lower extremity edema. Neuro: No motor deficit. No sensory deficit. LABS, X-RAYS, AND EKG Laboratory Tests: UA-Culture if indicated: (ANDREW: 10/07/2016 23:45) ( MsgRcvd 10/08/2016 00:08) Final results Test Result Flag Units (Reference) URINE COLOR YELLOW URINE APPEARANCE CLEAR URINE GLUCOSE NEGATIVE (NEGATIVE) URINE BILIRUBIN NEGATIVE (NEGATIVE) URINE KETONE NEGATIVE (NEGATIVE) URINE SPECIFIC GRAVITY 1.025 (1.010-1.030) URINE PH 6.0 (5.0-8.0) URINE PROTEIN TRACE (NEGATIVE) URINE UROBILINOGEN 0.2 EU/dL (0.2-1.0) URINE NITRITE NEGATIVE (NEGATIVE) URINE BLOOD NEGATIVE (NEGATIVE) URINE LEUK ESTERASE POSITIVE (NEGATIVE) URINE RBC 0-1 rbc/hpf (0-1) URINE WBC 3-5 wbc/hpf (0-1) URINE EPITHELIAL CELLS 0-1 EPI/hpf (0-5) URINE BACTERIA FEW (1+) (NONE SEEN) URINE COMMENT CULTURE INDICATED URINE CULTURES ARE SET-UP BASED ON THE FOLLOWING CRITERIA:POSITIVE NITRITEPOSITIVE LEUKOCYTE ESTERASEGREATER THAN 10 WHITE BLOOD CELLSMODERATE (2+) OR GREATER BACTERIA CBC w Diff: (ANDREW: 10/07/2016 23:20) ( [facility] 10/07/2016 23:31) Final results Test Result Flag Units (Reference) WHITE BLOOD COUNT 8.7 K/uL (4.5-11.5) RED BLOOD COUNT 5.35 H M/uL (4.00-5.20) HEMOGLOBIN 12.2 gm/dL (12.0-16.0) HEMATOCRIT 38.9 % (36.0-46.0) MEAN CELL VOLUME 73 L fL (80-100) MEAN CORPUSCULAR HGB 23 L pg (26-34) MEAN CORPUSCULAR HGB CONC 31 g/dL (31-37) RED CELL DISTRIBUTION WIDTH 15.9 H % (11.6-14.8) PLATELET COUNT 205 K/uL (150-400) LYMPH % 20.4 L % (25-40) MONO % 4.9 % (3-14) GRANULOCYTE % 74.7 (53-90) CPK: (ANDREW: 10/07/2016 23:20) ( [facility] 10/07/2016 23:47) Final results Test Result Flag Units (Reference) CPK 62 U/L (24-260) TROPONIN I <0.05 L ng/mL (0.00-1.5) TROPONIN REFERENCE RANGE:<0.1 NEGATIVE0.1-1.5 INDETERMINANT>1.5 POSITIVE CMP: (ANDREW: 10/07/2016 23:20) ( [facility] 10/07/2016 23:44) Final results Test Result Flag Units (Reference) GLUCOSE 176 H mg/dL (70-110) BUN 29 H mg/dL (7-18) CREATININE 1.1 mg/dL (0.6-1.3) Estimated GFR 53.32 mL/min Estimated GFR- >60 mL/min Note: Persistent reduction over 3 months in eGFR<60 mL/min/1.73 m2 defines CKD. Patients with eGFR values>=60 mL/min/1.73 m2 may also have CKD if evidence ofpersistent proteinuria. Additional information may be foundat www.kidney.org. SODIUM 137 mmol/L (136-145) POTASSIUM 4.4 mmol/L (3.5-5.1) CHLORIDE 100 mmol/L (98-107) CARBON DIOXIDE 26 mmol/L (21-32) CALCIUM 9.2 mg/dL (8.5-10.1) TOTAL PROTEIN 8.3 H g/dL (6.4-8.2) ALBUMIN 4.2 g/dL (3.3-5.0) BILIRUBIN, TOTAL 0.3 mg/dL (0.0-1.0) ALKALINE PHOSPHATASE 116 U/L (46-116) AST (SGOT) 30 U/L (15-37) ALT (SGPT) 36 U/L (12-78) LIPASE 253 U/L (73-393) AMYLASE 72 U/L (25-115) . PROGRESS AND PROCEDURES Course of Care: Patient is stable. Patient/family counseled. Old medical records reviewed. Disposition: Discharged. CLINICAL IMPRESSION Acute pyelonephritis INSTRUCTIONS Drink plenty of fluids. Warnings: Further evaluation is necessary. SEDATIVE MEDICATION: You were given sedative medication during your visit. Do not drive or operate dangerous machinery. Prescription Medications: Cipro 500 mg: take 1 tab orally every 12 hours for 10 days. Substitution is permissible. (18 pills to finish the course started in the emergency room. Start this on the morning of October 09, 2016) Follow-up: Follow up with your doctor in two days. Call for the next available appointment. Understanding of the discharge instructions verbalized by patient. (Electronically signed by Jamal Naranjo MD 10/08/2016 21:53)
--- NOTE | 2016-10-08 01:28 | ED NURSING NOTES ---
Clinical Report - Nurses [facility] [address] [place] [address] 10/07/2016 22:54 Patient: MIYA WHITFIELD TRIAGE Triage time 2305. Acuity: LEVEL 3. Chief Complaint: (weakness, sweats, pain in left buttock running down leg). Alert. --23:14 Neisha Ayala 23:09 10/07/16. BP: 143/68. HR: 117. RR: 18. O2 saturation: 95%. Temp: 98.9 F. Pain level now 12/18. --23:14 Neisha Ayala. Weight: 78.4 kg. Height/Length: 61 inches. BMI: 32.7. --23:08 Neisha Ayala. Medications Albuterol Sulfate Inhalation. Atrovent HFA Inhalation. Benzonatate Oral 100 mg, daily. Centrum. Citalopram & Diet Manage Prod Oral (Miscellaneous 10 mg) 20mg (1.5tablets day). Cyclobenzaprine HCl Oral 5 mg, at bedtime. Docusate Sodium Oral (Capsule 250 mg) 1 capsule, BID. Fluticasone Propionate HFA Inhalation 500-50mcg/puff (one puff BID). Gabapentin Oral 300 mg (one in AM and 2 at PM). HydrOXYzine HCl Oral 25 mg, at bedtime as needed. Ibuprofen Oral (Tablet 800 mg) 1 tablet, as needed. Insulin Regular Human Injection, Taken on sliding scale. LORazepam Oral 1 mg, 2x a day as needed. Magnesium Oral 400 mg, daily. MetFORMIN HCl Oral (Tablet 1000 mg) 1 tablet, 2x a day. methylcarbomol. Nortriptyline HCl Oral 10 mg, at bedtime. OxyCODONE HCl Oral. --23:12 Neisha Ayala. Allergies Latex. --23:12 Neisha Ayala. History Arrived by private vehicle. Historian: patient. Accompanied by family. This started today. ( Pt sts she was in the car today and felt very sweaty, she thought her blood sugar was low and she drank some OJ, when she got home, pt vomited a couple of times and then checked her blood sugar which was 150, she ate some crackers which she kept down, pt c/o feeling weak and tired, and has a pain in her left buttock that runs down her leg she feels is new). Treatment GENERAL LABOR: None. --23:14 Neisha Ayala. PROBLEMS: Back Pain. Cancer. Lung Disease. Diabetes Mellitus. SOB. Radiation for ca. . Chemo x 2 . Pneumonia. COPD - Chronic Obstructive Pulmonary Disease. Back pain with sciatica. 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 Hyperlipidemia. Anxiety Reaction. Asthma. Insomnia. Cough. Hyperglycemia. Diabeties. Hypertension. GERD. --23:13 Neisha Ayala. ADDITIONAL SURGERIES: Appendectomy. . --23:13 Neisha Ayala. Interventions ID band on patient. To treatment room. --23:14 Neisha Ayala. PHYSICAL ASSESSMENT Ambulatory to room. GENERAL / NEURO / PSYCH: Alert. Oriented X 4. Appears in distress. HEENT: Pupils equal, round and reactive to light. No facial asymmetry noted. Mucous membranes are pink. RESPIRATORY: Respirations not labored. Chest nontender. Breath sounds within normal limits. CVS: Cardiac rhythm: sinus tachycardia. Capillary refill less than 2 seconds. Pulses within normal limits. GI / : Abdominal distention. Abdomen soft. SKIN: Skin intact. Skin is warm and dry. Normal skin turgor. --23:14 Neisha Ayala. NURSING PROGRESS NOTES Monitoring of patient in place. Reassurance given. Bed placed in lowest position. Brakes of bed on. Patient ready for evaluation- chart flagged. --23:14 Neisha Ayala EKG time: (8880). EKG was ordered, performed by a tech and shown to the ED physician. --23:23 Nury Sifuentes 23:31 10/07/2016 Site #1 started via IV in the right antecubital space with an 20g angiocath, with aseptic technique and good blood return; one attempt. Blood drawn: rainbow set. Labeled in the presence of the patient and sent to the lab. Saline lock flushed with 10 mL saline. --23:31 Neisha Ayala The patient is sleeping. Overall patient status is the same- she states feels the same. --00:33 Neisha Ayala 00:33 10/08/16. BP: 105/56. HR: 115. RR: 16. --00:33 Jamie Neisha 00:50 10/08/2016 Started bag #1 1000 mL IV Fluids IV NS (Saline); bolus of 1000 mL wide open via site #1. Allergies verified and confirmed 5 rights. IV patency established. IV site checked: no pain, redness, or swelling. IV flushed thoroughly pre- and post-medication administration. --00:50 Neisha Ayala 00:50 10/08/2016 Levaquin (Levofloxacin) PO 750 mg given. Allergies verified and confirmed 5 rights. --00:50 Neisha Ayala Care transferred and report received. --01:27 Rebeka Elliott R.N. DISPOSITION / DISCHARGE Condition at departure: stable. No learning barriers present. Discharge instructions provided and reviewed with the patient. Reviewed medication(s) side effects, precautions, dosing and course information. Prescription(s) given to the patient. Patient verbalized understanding. Written instructions provided in Wolof. The patient was discharged home. She left the Emergency Department ambulatory and via private vehicle. Spouse driving. --01:42 Rebeka Elliott R.N. 01:42 10/08/16. BP: 108/55. HR: 114. RR: 16. O2 saturation: 93% on room air. Temp: deferred. Sanchez-Johnson pain scale: 2/10. --01:42 Rebeka Elliott R.N. 01:43 10/08/2016 Site #1 removed upon discharge. Catheter intact. Manual pressure and bandage applied. --01:43 Rebeka Elliott R.N. 01:43 10/08/2016 IV Fluids IV NS Discontinued: bag #1 STOPPED. Total amount infused: 600 mL. IV patency established. IV site checked: no pain, redness, or swelling. IV flushed thoroughly. --01:43 Rebeka Elliott R.N. ( pt calling , will wait for him to pick her up.). --01:44 Rebeka Elliott R.N. Locked/Released at 10/08/2016 1:44 by Rebeka Elliott R.N.
--- NOTE | 2016-10-08 06:35 | DIAGNOSTIC IMAGING REPORT ---
PROCEDURE: XR CHEST 1 VIEW INDICATION: WEAKNESS TECHNIQUE: Portable AP view 11:27 p.m. COMPARISON: Chest x-ray 08/02/2015 FINDINGS: Improved right mid lung linear stranding. Stable prominent right hilum. Left lung is clear. Right subclavian Port-A-Cath has been removed. Heart and mediastinum are normal. Thorax is normal. IMPRESSION: 1. Right mid lung scarring. 2. Right subclavian Port-A-Cath removed.
--- NOTE | 2016-10-08 21:53 | ED MAR SUMMARY ---
..... Medication Administration Record [facility] [address] [place] [address] Patient: MIYA WHITFIELD Visit ID: [id number] 65y, F Weight: 78.4 kg Height/Length: 61 in BMI: 32.7 ALLERGIES: Latex Start 00:50 10/08/2016 Neisha Ayala,, Stop 01:43 10/08/2016 Rebeka Elliott R.N. Medication Administered: IV NS (SALINE), Dose: IV Fluids, Bolus: 1000 mL wide open, Dispensed: 1000 mL bag, Site: #1 right AC. Medication Ordered: IV NS : initial bolus 1000 mL (1000 mL/hr), then none - for X1 (NOW); Urgent. Given 00:50 10/08/2016 Neisha Ayala, Medication Administered: LEVAQUIN [PO] (LEVOFLOXACIN), Dose: 750 mg PO. Medication Ordered: Levaquin PO 750 mg (NOW).
--- NOTE | 2016-10-08 21:53 | ED DISCHARGE INSTRUCTIONS ---
Patient: MIYA WHITFIELD General Instructions [facility] VisitID: [id number] [place] [address] 65y, F Registration Date/Time: 10/07/2016 Acute pyelonephritis INSTRUCTIONS Drink plenty of fluids. Warnings: Further evaluation is necessary. SEDATIVE MEDICATION: You were given sedative medication during your visit. Do not drive or operate dangerous machinery. Prescription Medications: Cipro 500 mg: take 1 tab orally every 12 hours for 10 days. Substitution is permissible. (18 pills to finish the course started in the emergency room. Start this on the morning of October 09, 2016) Follow-up: Follow up with your doctor in two days. Call for the next available appointment. Understanding of the discharge instructions verbalized by patient. ADDITIONAL INFORMATION Kidney Infection [Adult, Female] An infection of the kidney is also called "pyelonephritis". It usually starts as a bladder infection ("cystitis") which spreads to the kidneys. Pyelonephritis is more serious than a bladder infection. It can cause severe illness if not treated properly. The usual symptoms include an aching pain in the back, side or lower abdomen. Other symptoms may include fever, chills, nausea, vomiting, an urge to urinate and a burning sensation when passing urine. Home Care: Stay home from work or school. Rest in bed until your fever breaks and you are feeling better. Drink lots of fluid (at least 6-8 glasses a day, unless you must restrict fluids for other medical reasons). This will force the medicine into your urinary system and flush the bacteria out of your body. Avoid sexual intercourse until you have finished all of your medicine and your symptoms have gone away. Avoid caffeine, alcohol and spicy foods which may irritate the kidney and bladder. You may use acetaminophen (Tylenol) or ibuprofen (Motrin, Advil) to control pain, unless another pain medicine was prescribed. [NOTE: If you have chronic liver or kidney disease or ever had a stomach ulcer or GI bleeding, talk with your doctor before using these medicines.] Follow Up with your doctor or as advised by our staff for a repeat urine test in 10 days. This will ensure that your infection is fully cleared. [NOTE: If you had an X-ray or CT scan, it will be reviewed by a specialist. You will be notified of any new findings that may affect your care.] Get Prompt Medical Attention if any of the following occur: Fever over 100.4F (38.0C) after 48 hours of treatment No improvement by the third day of treatment Increasing back or abdominal pain Repeated vomiting or inability to take oral medicine Weakness, dizziness or fainting Ciprofloxacin Hydrochloride Oral tablet What is this medicine? CIPROFLOXACIN (sip pedro FLOX a sin) is a quinolone antibiotic. It is used to treat certain kinds of bacterial infections. It will not work for colds, flu, or other viral infections. How should I use this medicine? Take this medicine by mouth with a glass of water. Follow the directions on the prescription label. Take your medicine at regular intervals. Do not take your medicine more often than directed. Take all of your medicine as directed even if you think your are better. Do not skip doses or stop your medicine early. You can take this medicine with food or on an empty stomach. It can be taken with a meal that contains dairy or calcium, but do not take it alone with a dairy product, like milk or yogurt or calcium-fortified juice. A special MedGuide will be given to you by the pharmacist with each prescription and refill. Be sure to read this information carefully each time. Talk to your geothermal field technician regarding the use of this medicine in children. Special care may be needed. What side effects may I notice from receiving this medicine? Side effects that you should report to your doctor or health healthcare sales representative as soon as possible: - allergic reactions like skin rash, itching or hives, swelling of the face, lips, or tongue - breathing problems - confusion, nightmares or hallucinations - feeling faint or lightheaded, falls - irregular heartbeat - joint, muscle or tendon pain or swelling - pain or trouble passing urine -persistent headache with or without blurred vision - redness, blistering, peeling or loosening of the skin, including inside the mouth - seizure - unusual pain, numbness, tingling, or weakness Side effects that usually do not require medical attention (report to your doctor or health healthcare sales representative if they continue or are bothersome): - diarrhea - nausea or stomach upset - white patches or sores in the mouth What may interact with this medicine? Do not take this medicine with any of the following medications: cisapride droperidol terfenadine tizanidine This medicine may also interact with the following medications: antacids caffeine cyclosporin didanosine (ddI) buffered tablets or powder medicines for diabetes medicines for inflammation like ibuprofen, naproxen methotrexate multivitamins omeprazole phenytoin probenecid sucralfate theophylline warfarin What if I miss a dose? If you miss a dose, take it as soon as you can. If it is almost time for your next dose, take only that dose. Do not take double or extra doses. Where should I keep my medicine? Keep out of the reach of children. Store at room temperature below 30 degrees C (86 degrees F). Keep container tightly closed. Throw away any unused medicine after the expiration date. What should I tell my health care provider before I take this medicine? They need to know if you have any of these conditions: -bone problems -cerebral disease -joint problems -irregular heartbeat -kidney disease -liver disease -myasthenia gravis -seizure disorder -tendon problems -an unusual or allergic reaction to ciprofloxacin, other antibiotics or medicines, foods, dyes, or preservatives - or trying to get -breast-feeding What should I watch for while using this medicine? Tell your doctor or health healthcare sales representative if your symptoms do not improve. Do not treat diarrhea with over the counter products. Contact your doctor if you have diarrhea that lasts more than 2 days or if it is severe and watery. You may get drowsy or dizzy. Do not drive, use machinery, or do anything that needs mental alertness until you know how this medicine affects you. Do not stand or sit up quickly, especially if you are an older patient. This reduces the risk of dizzy or fainting spells. This medicine can make you more sensitive to the sun. Keep out of the sun. If you cannot avoid being in the sun, wear protective clothing and use sunscreen. Do not use sun lamps or tanning beds/booths. Avoid antacids, aluminum, calcium, iron, magnesium, and zinc products for 6 hours before and 2 hours after taking a dose of this medicine. You have been given the following additional information: Pyelonephritis, Female (Adult) Ciprofloxacin Hydrochloride Oral tablet (Electronically signed by Jamal Naranjo MD 10/08/2016 21:53)
--- NOTE | 2016-10-08 21:53 | ED MED RECONCILIATION SUMMARY ---
Patient: MIYA WHITFIELD Medication Reconciliation Report [facility] VisitID: [id number] [place] [address] 65y, F Registration Date/Time: 10/07/2016 Weight: 78.4 kg Height/Length: 61 in. BMI: 32.7 ALLERGIES: Latex The patient's Home Medications are listed below: THE FOLLOWING MEDICATIONS NEED TO BE RECONCILED: Albuterol Sulfate Inhalation Atrovent HFA Inhalation Benzonatate Oral 100 mg, daily Centrum Citalopram & Diet Manage Prod Oral (10 mg) 20mg, 1.5tablets day Cyclobenzaprine HCl Oral 5 mg, at bedtime Docusate Sodium Oral (250 mg) 1 capsule, BID Fluticasone Propionate HFA Inhalation 500-50mcg/puff, one puff BID Gabapentin Oral 300 mg, one in AM and 2 at PM HydrOXYzine HCl Oral 25 mg, at bedtime Ibuprofen Oral (800 mg) 1 tablet Insulin Regular Human Injection LORazepam Oral 1 mg, 2x a day Magnesium Oral 400 mg, daily MetFORMIN HCl Oral (1000 mg) 1 tablet, 2x a day methylcarbomol Nortriptyline HCl Oral 10 mg, at bedtime OxyCODONE HCl Oral The source(s) of the original Home Medication information: Not obtained. The following Medications were given to the patient in the Emergency Department: IV NS IV Fluids bolus 1000 mL wide open, administered: 10/08/2016 12:50:00 AM Levaquin [PO] PO 750 mg, administered: 10/08/2016 12:50:00 AM The following Medications were prescribed to the patient: Cipro 500 mg: take 1 tab orally every 12 hours for 10 days. Substitution is permissible.(18 pills to finish the course started in the emergency room. Start this on the morning of October 09, 2016) -- Jamal Naranjo MD
--- NOTE | 2016-10-08 21:53 | ED MED RECONCILIATION SUMMARY ---
Patient: MIYA WHITFIELD Medication Reconciliation Report [facility] VisitID: [id number] [place] [address] 65y, F Registration Date/Time: 10/07/2016 Weight: 78.4 kg Height/Length: 61 in. BMI: 32.7 ALLERGIES: Latex The patient's Home Medications are listed below: THE FOLLOWING MEDICATIONS NEED TO BE RECONCILED: Albuterol Sulfate Inhalation Atrovent HFA Inhalation Benzonatate Oral 100 mg, daily Centrum Citalopram & Diet Manage Prod Oral (10 mg) 20mg, 1.5tablets day Cyclobenzaprine HCl Oral 5 mg, at bedtime Docusate Sodium Oral (250 mg) 1 capsule, BID Fluticasone Propionate HFA Inhalation 500-50mcg/puff, one puff BID Gabapentin Oral 300 mg, one in AM and 2 at PM HydrOXYzine HCl Oral 25 mg, at bedtime Ibuprofen Oral (800 mg) 1 tablet Insulin Regular Human Injection LORazepam Oral 1 mg, 2x a day Magnesium Oral 400 mg, daily MetFORMIN HCl Oral (1000 mg) 1 tablet, 2x a day methylcarbomol Nortriptyline HCl Oral 10 mg, at bedtime OxyCODONE HCl Oral The source(s) of the original Home Medication information: Not obtained. The following Medications were given to the patient in the Emergency Department: IV NS IV Fluids bolus 1000 mL wide open, administered: 10/08/2016 12:50:00 AM Levaquin [PO] PO 750 mg, administered: 10/08/2016 12:50:00 AM The following Medications were prescribed to the patient: Cipro 500 mg: take 1 tab orally every 12 hours for 10 days. Substitution is permissible.(18 pills to finish the course started in the emergency room. Start this on the morning of October 09, 2016) -- Jamal Naranjo MD
--- NOTE | 2016-10-08 21:53 | ED MAR SUMMARY ---
..... Medication Administration Record [facility] [address] [place] [address] Patient: MIYA WHITFIELD Visit ID: [id number] 65y, F Weight: 78.4 kg Height/Length: 61 in BMI: 32.7 ALLERGIES: Latex Start 00:50 10/08/2016 Neisha Ayala,, Stop 01:43 10/08/2016 Rebeka Elliott R.N. Medication Administered: IV NS (SALINE), Dose: IV Fluids, Bolus: 1000 mL wide open, Dispensed: 1000 mL bag, Site: #1 right AC. Medication Ordered: IV NS : initial bolus 1000 mL (1000 mL/hr), then none - for X1 (NOW); Urgent. Given 00:50 10/08/2016 Neisha Ayala, Medication Administered: LEVAQUIN [PO] (LEVOFLOXACIN), Dose: 750 mg PO. Medication Ordered: Levaquin PO 750 mg (NOW).
== END 2016-10-08 01:43 | disposition home or self-care (01) ==
LOC: ED SRH 22:53
DX: N10 Acute pyelonephritis (principal); E11.9 Type 2 diabetes mellitus without complications; J44.1 Chronic obstructive pulmonary disease with (acute) exacerbation; E78.5 Hyperlipidemia, unspecified; I10 Essential (primary) hypertension; K21.9 Gastro-esophageal reflux disease without esophagitis; J45.909 Unspecified asthma, uncomplicated; Z79.51 Long term (current) use of inhaled steroids; Z79.4 Long term (current) use of insulin; Z79.891 Long term (current) use of opiate analgesic
CPT/HCPCS: 90004; 90100; 90148; 90469; 90616; 92235; 92530; 92610; 95059

== ENCOUNTER 2016-11-29 20:00 | Emergency (ER) | payer OTHER ==
[~2016-11-29 20:00] MED LIST: ALBUTEROL HFA60 DOSE IN; ATIVAN1 MG PO; BENZONATATE100 MG PO; CENTRUM1 TAB PO; CITALOPRAM HYDR10 MG PO; CYCLOBENZAPRINE5 MG PO; DSS250 MG PO; FLOVENT DISKU250 MCG IN; GABAPENTIN300 MG PO; GABAPENTIN600 MG PO; HUMALIN R100 UNITS/; HYDROXYZINE HCL25 MG PO; IBUPROFEN600 MG PO; MAGNESIUM400 M1 PO; METFORMIN HCL500 MG PO; NORTRIPTYLINE H10 MG PO
--- NOTE | 2016-11-29 21:31 | ED CLINICAL REPORT ---
Clinical Report - Physicians/Mid Levels [facility] [address] [place] [address] 11/29/2016 20:01 Patient: MIYA WHITFIELD Time Seen: 20:38; initial patient contact, initial documentation, patient care assumed. Arrived- By private vehicle. Historian- patient. HISTORY OF PRESENT ILLNESS Chief Complaint: BACK PAIN and CHRONIC BACK PAIN. It is described as being severe. It is described as being in the area of the left mid lumbar spine, mid lumbar spine, left lower lumbar spine, left SI joint and left gluteus. It is described as being in the area of the lower lumbar spine and radiating to the left hip, thigh, knee and calf. The quality is noted to be "pain" and similar to prior episodes. Modifying factors- worsened by sitting, standing, rotation of the body to the right or left, bending over or lifting. Not relieved by anything. It is still present and now worse. (worse 3 days ago). No bladder dysfunction, bowel dysfunction, sensory loss or motor loss. Additional history - took #2 oxycodone about 3 hrs prior to my exam and no relief. Patient denies an injury but injury to the head or neck. No other injury. Similar symptoms previously: Chronically, as bad. Recent medical care: Not recently seen/assessed. REVIEW OF SYSTEMS No fever, difficulty with urination, urinary frequency, hematuria or vaginal discharge. No difficulty breathing, chest pain, abdominal pain, vomiting or diarrhea. All systems otherwise negative, except as recorded above. PAST HISTORY See nurses notes. PROBLEMS: Pyelonephritis. Lung Disease. Diabetes Mellitus. SOB. Radiation for ca. . Chemo x 2 . Pneumonia. COPD - Chronic Obstructive Pulmonary Disease. Hyperlipidemia. Anxiety Reaction. Insomnia. Hyperglycemia. Diabeties. Hypertension. GERD. --20:18 Adelina Caldera R.N. ADDITIONAL SURGERIES: Appendectomy. . --20:18 Adelina Caldera R.N. SOCIAL HISTORY Light tobacco smoker. No alcohol use or drug use. No recent travel. Is a local resident. FAMILY HISTORY Negative. ADDITIONAL NOTES The nursing notes have been reviewed with agreement regarding the chief complaint, HPI, ROS, PMH and patient medications and allergies. PHYSICAL EXAM Vital Signs: 11/29/2016 20:16 BP: 113/65. HR: 110. RR: 20. O2 saturation: 97%. Temp: 98.5 F. Pain level now: 01/18. Have been reviewed as abnormal and appear to be correct. Blood pressure normal. Tachycardic. Respiratory rate normal. Temperature normal. Oxygen saturation normal. Appearance: Alert. No acute distress. Neck: Normal inspection. Neck nontender. Painless ROM. CVS: Heart sounds normal. Pulses normal. Respiratory: No respiratory distress. Breath sounds normal. Abdomen: No visible injury. Soft and nontender. Bowel sounds normal. No organomegaly. No mass. Back: Abnormal inspection. Back tenderness present. Moderate soft tissue tenderness in the left mid and lower lumbar area. No painless ROM. Moderately limited ROM in the back- in the lumbar spine: decreased flexion, extension, right lateral bending, left lateral bending and rotation to the right and left. No muscle spasm in the back, vertebral point tenderness or CVA tenderness. Skin: Skin warm and dry. Normal skin color. No rash. Normal skin turgor. Extremities: Extremities exhibit normal ROM. Extremities nontender. Neuro: Oriented X 3. Mood/affect normal. No motor deficit. No sensory deficit. PROGRESS AND PROCEDURES Course of Care: 21:01 11/29/16. pt has gonzález for monthly oxycodone, and #5 er visits, see report for full details. Patient counseled in person regarding the patient's stable condition and diagnosis. Differential Diagnosis: I considered Musculo-skeletal strain, contusion, retroperitoneal hematoma, disk protrusion, vertebral fracture, facet syndrome, sacroiliac joint strain, sciatica, osteoarthritis, lumbar spondylosis, spinal stenosis, ankylosing spondylitis, sacroiliac joint inflammation, multiple myeloma and lymphoma as a possible cause of back pain in this patient. This is a partial list of diagnoses considered. Above considerations are based on history, physical exam and reassessment. Differential diagnosis was discussed with patient. Disposition: Discharged home in good and improved condition (21:31). Condition: good and stable. CLINICAL IMPRESSION Chronic nontraumatic lumbar back pain. Sciatica present on the left. No radiculopathy or neurological deficit. INSTRUCTIONS Warnings: GENERAL WARNINGS: Return or contact your physician immediately if your condition worsens or changes unexpectedly, if not improving as expected, or if other problems arise. SPECIFICALLY, return if you develop incontinence of urine (loss of bladder control). Follow-up: Follow up with your doctor in about three days as needed. Call for an appointment. Summary of care provided to patient. Understanding of the discharge instructions verbalized by patient. (Electronically signed by Lyudmila Miranda A.R.N.P. 11/29/2016 23:02)
--- NOTE | 2016-11-29 21:31 | ED NURSING NOTES ---
Clinical Report - Nurses [facility] [address] [place] [address] 11/29/2016 20:01 Patient: MIYA WHITFIELD TRIAGE Triage time 2015. Acuity: LEVEL 4. Chief Complaint: BACK PAIN and (pt has chronic back pain, much worse last 3 days. pt has SI pain with sciatic pain going down left leg to ankle). 20:16. --20:23 Adelina Caldera R.N. 20:16 11/29/16. BP: 113/65. HR: 110. RR: 20. O2 saturation: 97%. Temp: 98.5 F. Pain level now: 01/18. --20:23 Adelina Caldera R.N. Weight: 81.6 kg stated. Height/Length: 61 inches Per Patient. BMI: 34. --20:19 Adelina Caldera R.N. Medications OxyCODONE HCl Oral 5 mg, 2x a day, last dose 1800. --20:21 Adelina Caldera R.N. Albuterol Sulfate Inhalation. Atrovent HFA Inhalation. Benzonatate Oral 100 mg, daily. Centrum. Citalopram & Diet Manage Prod Oral (Miscellaneous 10 mg) 20mg (1.5tablets day). Cyclobenzaprine HCl Oral 5 mg, at bedtime. Docusate Sodium Oral (Capsule 250 mg) 1 capsule, BID. Fluticasone Propionate HFA Inhalation 500-50mcg/puff (one puff BID). Gabapentin Oral 300 mg (one in AM and 2 at PM). HydrOXYzine HCl Oral 25 mg, at bedtime as needed. Ibuprofen Oral (Tablet 800 mg) 1 tablet, as needed. Insulin Regular Human Injection, Taken on sliding scale. LORazepam Oral 1 mg, 2x a day as needed. Magnesium Oral 400 mg, daily. MetFORMIN HCl Oral (Tablet 1000 mg) 1 tablet, 2x a day. methylcarbomol. Nortriptyline HCl Oral 10 mg, at bedtime. --20:21 Adelina Caldera R.N. BuPROPion HCl Oral 100 mg, daily. --20:21 Adelina Caldera R.N. The following entry was struck and corrected by Adelina Caldera R.N., 20:22 (11/29/16) Reason for correction - other(correction). <<STRICKEN ENTRY-- OxyCODONE HCl Oral. --20:21 Adelina Caldera R.N. --END STRIKE>>. Allergies Latex. --20:21 Adelina Caldera R.N. History Arrived by private vehicle. Historian: patient. Accompanied by spouse. [facility] ( pt is in remission for lung cancer . states she took oxycodone 2 hours ago and it didn;t help the pain). SOCIAL HX: Light tobacco smoker (cigarette)- less than 1/2 a pack per day. No alcohol use or drug use. --20:23 Adelina Caldera R.N. PROBLEMS: Pyelonephritis. Lung Disease. Diabetes Mellitus. SOB. Radiation for ca. . Chemo x 2 . Pneumonia. COPD - Chronic Obstructive Pulmonary Disease. Hyperlipidemia. Anxiety Reaction. Insomnia. Hyperglycemia. Diabeties. Hypertension. GERD. --20:18 Adelina Caldera R.N. ADDITIONAL SURGERIES: Appendectomy. . --20:18 Adelina Caldera R.N. Interventions ID band on patient. To treatment room. --20:23 Adelina Caldera R.N. PHYSICAL ASSESSMENT 20:16. Ambulatory to room. Patient gowned. GENERAL / NEURO / PSYCH: Alert. Oriented X 4. Appears in pain. RESPIRATORY: Respirations not labored. Chest nontender. CVS: Capillary refill less than 2 seconds. EXTREMITIES: Limited ROM present. ( sciatic pain shooting down left leg). BACK: Limited ROM of the back. Soft tissue tenderness. --20:24 Adelina Caldera R.N. NURSING PROGRESS NOTES 20:16. Patient gowned. Head of bed elevated. Reassurance given. Patient identifiers checked. Call light placed in reach. Side rails up. Bed placed in lowest position. Patient ready for evaluation- chart flagged. --20:24 Adelina Caldera R.N. 21:13 11/29/2016 Zofran ODT (Ondansetron) PO Oral Disintegrating Tablets 4 mg given. Allergies verified and confirmed 5 rights. --21:20 Adelina Caldera R.N. 21:15 11/29/2016 Dilaudid (HYDROmorphone HCl PF) IM 1 mg given. Given in the left ventral gluteus. Sedative warning given to the patient. --21:20 Adelina Caldera R.N. 21:15 Pt given pain and nausea meds. resting quetly, at bedside. --22:28 Adelina Cladera R.N. 21:40 Pt states pain is down to 4/10" ready to go home". --22:29 Adelina Caldera R.N. DISPOSITION / DISCHARGE 21:45. Condition at departure: improved and stable. No learning barriers present. Discharge instructions provided and reviewed with the patient and spouse. Patient and spouse verbalized understanding. Written instructions provided in [place]ian. The patient was discharged home and accompanied by spouse. She left the Emergency Department ambulatory and via private vehicle. Spouse driving. --:28 Adelina Caldera R.N. 21:45 11/29/16. BP: 94/57. HR: 106. RR: 20. O2 saturation: 94% on room air. Temp: deferred. Pain level now: 4/10. --22:28 Adelina Caldera R.N. Locked/Released at 11/29/2016 22:29 by Adelina Caldera R.N.
--- NOTE | 2016-11-29 21:31 | ED ORDER SUMMARY ---
..... Patient: MIYA WHITFIELD OrderSheet [facility] VisitID: [id number] [address] [place] [address] 66y, F Registration Date/Time: 11/29/2016 ORDER SHEET Weight: 81.6 kg (stated) Allergies: Latex GENERAL ORDERS: MEDICATION ORDERS: Dilaudid IM 1 mg (HIGH ALERT MEDICATION, NOW) (21:00 11/29/2016 HBivens A.R.N.P.) (Ack 21:15 DDean R.N.) (21:20 DDean R.N.) Zofran ODT PO 4 mg (NOW) (21:00 11/29/2016 HBivens A.R.N.P.) (Ack 21:15 DDean R.N.) (21:20 DDean R.N.) IV FLUIDS: ORDER SHEET NOTES: [Electronically signed by Adelina Caldera R.N. (22:29 11/29/2016)] [Electronically signed by Lyudmila Miranda.R.N.P. (23:02 11/29/2016)] [Electronically locked/signed by Adelina Caldera R.N. (22:29 11/29/2016)]
--- NOTE | 2016-11-29 21:31 | ED ORDER SUMMARY ---
..... Patient: MIYA WHITFIELD OrderSheet [facility] VisitID: [id number] [address] [place] [address] 66y, F Registration Date/Time: 11/29/2016 ORDER SHEET Weight: 81.6 kg (stated) Allergies: Latex GENERAL ORDERS: MEDICATION ORDERS: Dilaudid IM 1 mg (HIGH ALERT MEDICATION, NOW) (21:00 11/29/2016 HBivens A.R.N.P.) (Ack 21:15 DDean R.N.) (21:20 DDean R.N.) Zofran ODT PO 4 mg (NOW) (21:00 11/29/2016 HBivens A.R.N.P.) (Ack 21:15 DDean R.N.) (21:20 DDean R.N.) IV FLUIDS: ORDER SHEET NOTES: [Electronically signed by Adelina Caldera R.N. (22:29 11/29/2016)] [Electronically signed by Lyudmila Miranda.R.N.P. (23:02 11/29/2016)] [Electronically locked/signed by Adelina Caldera R.N. (22:29 11/29/2016)]
--- NOTE | 2016-11-29 23:03 | ED MED RECONCILIATION SUMMARY ---
Patient: MIYA WHITFIELD Medication Reconciliation Report [facility] VisitID: [id number] [address] [place] [address] 66y, F Registration Date/Time: 11/29/2016 Weight: 81.6 kg Height/Length: 61 in. BMI: 34.0 ALLERGIES: Latex The patient's Home Medications are listed below: THE FOLLOWING MEDICATIONS NEED TO BE RECONCILED: Albuterol Sulfate Inhalation Atrovent HFA Inhalation Benzonatate Oral 100 mg, daily BuPROPion HCl Oral 100 mg, daily Centrum Citalopram & Diet Manage Prod Oral (10 mg) 20mg, 1.5tablets day Cyclobenzaprine HCl Oral 5 mg, at bedtime Docusate Sodium Oral (250 mg) 1 capsule, BID Fluticasone Propionate HFA Inhalation 500-50mcg/puff, one puff BID Gabapentin Oral 300 mg, one in AM and 2 at PM HydrOXYzine HCl Oral 25 mg, at bedtime Ibuprofen Oral (800 mg) 1 tablet Insulin Regular Human Injection LORazepam Oral 1 mg, 2x a day Magnesium Oral 400 mg, daily MetFORMIN HCl Oral (1000 mg) 1 tablet, 2x a day methylcarbomol Nortriptyline HCl Oral 10 mg, at bedtime OxyCODONE HCl Oral 5 mg, 2x a day, last dose: 1800 The source(s) of the original Home Medication information: Not obtained. The following Medications were given to the patient in the Emergency Department: Dilaudid [IM] IM 1 mg, administered: 11/29/2016 9:15:00 PM Zofran ODT [PO] PO 4 mg, administered: 11/29/2016 9:13:00 PM The following Medications were prescribed to the patient: None.
--- NOTE | 2016-11-29 23:03 | ED MED RECONCILIATION SUMMARY ---
Patient: MIYA WHITFIELD Medication Reconciliation Report [facility] VisitID: [id number] [address] [place] [address] 66y, F Registration Date/Time: 11/29/2016 Weight: 81.6 kg Height/Length: 61 in. BMI: 34.0 ALLERGIES: Latex The patient's Home Medications are listed below: THE FOLLOWING MEDICATIONS NEED TO BE RECONCILED: Albuterol Sulfate Inhalation Atrovent HFA Inhalation Benzonatate Oral 100 mg, daily BuPROPion HCl Oral 100 mg, daily Centrum Citalopram & Diet Manage Prod Oral (10 mg) 20mg, 1.5tablets day Cyclobenzaprine HCl Oral 5 mg, at bedtime Docusate Sodium Oral (250 mg) 1 capsule, BID Fluticasone Propionate HFA Inhalation 500-50mcg/puff, one puff BID Gabapentin Oral 300 mg, one in AM and 2 at PM HydrOXYzine HCl Oral 25 mg, at bedtime Ibuprofen Oral (800 mg) 1 tablet Insulin Regular Human Injection LORazepam Oral 1 mg, 2x a day Magnesium Oral 400 mg, daily MetFORMIN HCl Oral (1000 mg) 1 tablet, 2x a day methylcarbomol Nortriptyline HCl Oral 10 mg, at bedtime OxyCODONE HCl Oral 5 mg, 2x a day, last dose: 1800 The source(s) of the original Home Medication information: Not obtained. The following Medications were given to the patient in the Emergency Department: Dilaudid [IM] IM 1 mg, administered: 11/29/2016 9:15:00 PM Zofran ODT [PO] PO 4 mg, administered: 11/29/2016 9:13:00 PM The following Medications were prescribed to the patient: None.
--- NOTE | 2016-11-29 23:03 | ED MAR SUMMARY ---
..... Medication Administration Record [facility] [address] [place] [address] Patient: MIYA WHITFIELD Visit ID: [id number] 66y, F Weight: 81.6 kg Height/Length: 61 in BMI: 34 ALLERGIES: Latex Given 21:13 11/29/2016 Adelina Caldera RMayiN. Medication Administered: ZOFRAN ODT [PO] (ONDANSETRON), Dose: 4 mg Oral Disintegrating Tablets PO. Medication Ordered: Zofran ODT PO 4 mg (NOW). Given 21:15 11/29/2016 Adelina Caldera, RMayiN. Medication Administered: DILAUDID [IM] (HYDROMORPHONE HCL PF), Dose: 1 mg IM. Medication Ordered: Dilaudid IM 1 mg (HIGH ALERT MEDICATION, NOW).
--- NOTE | 2016-11-29 23:03 | ED DISCHARGE INSTRUCTIONS ---
Patient: MIYA WHITFIELD General Instructions [facility] VisitID: [id number] [place] [address] 66y, F Registration Date/Time: 11/29/2016 Chronic nontraumatic lumbar back pain. Sciatica present on the left. No radiculopathy or neurological deficit. INSTRUCTIONS Warnings: GENERAL WARNINGS: Return or contact your physician immediately if your condition worsens or changes unexpectedly, if not improving as expected, or if other problems arise. SPECIFICALLY, return if you develop incontinence of urine (loss of bladder control). Follow-up: Follow up with your doctor in about three days as needed. Call for an appointment. Summary of care provided to patient. Understanding of the discharge instructions verbalized by patient. ADDITIONAL INFORMATION Back Pain [Acute Or Chronic] Back pain is usually caused by an injury to the muscles or ligaments of the spine. Sometimes the disks that separate each bone in the spine may bulge and cause pain by pressing on a nearby nerve. Back pain may also appear after a sudden twisting/bending force (such as in a car accident), after a simple awkward movement, or lifting something heavy with poor body positioning. In either case, muscle spasm is often present and adds to the pain. Acute back pain usually gets better in one to two weeks. Back pain related to disk disease, arthritis in the spinal joints or spinal stenosis (narrowing of the spinal canal) can become chronic and last for months or years. Unless you had a physical injury (for example, a car accident or fall) X-rays are usually not ordered for the initial evaluation of back pain. If pain continues and does not respond to medical treatment, x-rays and other tests may be performed at a later time. Home Care: You may need to stay in bed the first few days. But, as soon as possible, begin sitting or walking to avoid problems with prolonged bed rest (muscle weakness, worsening back stiffness and pain, blood clots in the legs). When in bed, try to find a position of comfort. A firm mattress is best. Try lying flat on your back with pillows under your knees. You can also try lying on your side with your knees bent up towards your chest and a pillow between your knees. Avoid prolonged sitting. This puts more stress on the lower back than standing or walking. During the first two days after injury, apply an ICE PACK to the painful area for 20 minutes every 2-4 hours. This will reduce swelling and pain. HEAT (hot shower, hot bath or heating pad) works well for muscle spasm. You can start with ice, then switch to heat after two days. Some patients feel best alternating ice and heat treatments. Use the one method that feels the best to you. You may use acetaminophen (Tylenol) or ibuprofen (Motrin, Advil) to control pain, unless another pain medicine was prescribed. [NOTE: If you have chronic liver or kidney disease or ever had a stomach ulcer or GI bleeding, talk with your doctor before using these medicines.] Be aware of safe lifting methods and do not lift anything over 15 pounds until all the pain is gone. Follow Up with your doctor or this facility if your symptoms do not start to improve after one week. Physical therapy may be needed. [NOTE: If X-rays were taken, they will be reviewed by a radiologist. You will be notified of any new findings that may affect your care.] Get Prompt Medical Attention if any of the following occur: Pain becomes worse or spreads to your legs Weakness or numbness in one or both legs Loss of bowel or bladder control Numbness in the groin or genital area Sciatica Sciatica ("Lumbar Radiculopathy") causes a pain that spreads from the lower back down into the buttock, hip and leg. Sometimes leg pain can occur without any back pain. Sciatica is due to irritation or pressure on a spinal nerve as it comes out of the spinal canal. This is most often due to a bulge or rupture of a nearby spinal disk (the cartilage cushion between each spinal bone), which presses on a nearby nerve. Other causes include spinal stenosis (narrowing of the spinal canal) and spasm of the pyriform muscle (a muscle in the buttocks that the sciatic nerve passes through). Sciatica may begin after a sudden twisting/bending force (such as in a car accident), or sometimes after a simple awkward movement. In either case, muscle spasm is commonly present and contributes to the pain. The diagnosis of sciatica is made from the symptoms and physical exam. Unless you had a physical injury (such as a car accident or fall), X-rays are usually not ordered for the initial evaluation of sciatica because the nerves and disks cannot be seen on an x-ray. If signs of a compressed nerve are present (for example, loss of tendon reflex or strength in the leg), an MRI (magnetic resonance imaging) scan will need to be scheduled as an outpatient. Most sciatica (80-90%) gets better with medicine, exercise, physical therapy. If symptoms continue after at least three months of medical treatment, surgery may be considered. Home Care: You may need to stay in bed the first few days. But, as soon as possible, begin sitting or walking to avoid problems with prolonged bed rest. When in bed, try to find a position of comfort. A firm mattress is best. Try lying flat on your back with pillows under your knees. You can also try lying on your side with your knees bent up towards your chest and a pillow between your knees. Avoid prolonged sitting. This puts more stress on the lower back than standing or walking. Some persons find relief with heat (hot shower, hot bath or heating pad) and massage, while others prefer cold packs (crushed or cubed ice in a plastic bag, wrapped in a towel). Try both and use the method that feels best for 20 minutes several times a day. You may use acetaminophen (Tylenol) or ibuprofen (Motrin, Advil) to control pain, unless another pain medicine was prescribed. [ NOTE: If you have chronic liver or kidney disease or ever had a stomach ulcer or GI bleeding, talk with your doctor before using these medicines.] Be aware of safe lifting methods and do not lift anything over 15 pounds until all the pain is gone. Follow Up with your doctor or this facility if your symptoms do not start to improve after one week. Physical therapy or further testing may be needed. [NOTE: If X-rays were taken, they will be reviewed by a radiologist. You will be notified of any new findings that may affect your care.] Get Prompt Medical Attention if any of the following occur: Pain becomes worse, not controlled by the prescribed medicine Weakness or numbness in one or both legs Numbness in the groin, genital area Loss of bowel or bladder control You have been given the following additional information: Back Pain (Acute Or Chronic) Back Pain W/ Sciatica (Electronically signed by Lyudmila Miranda A.R.N.P. 11/29/2016 23:02)
--- NOTE | 2016-11-29 23:03 | ED MAR SUMMARY ---
..... Medication Administration Record [facility] [address] [place] [address] Patient: MIYA WHITFIELD Visit ID: [id number] 66y, F Weight: 81.6 kg Height/Length: 61 in BMI: 34 ALLERGIES: Latex Given 21:13 11/29/2016 Adelina Caldera RMayiN. Medication Administered: ZOFRAN ODT [PO] (ONDANSETRON), Dose: 4 mg Oral Disintegrating Tablets PO. Medication Ordered: Zofran ODT PO 4 mg (NOW). Given 21:15 11/29/2016 Adelina Caldera, RMayiN. Medication Administered: DILAUDID [IM] (HYDROMORPHONE HCL PF), Dose: 1 mg IM. Medication Ordered: Dilaudid IM 1 mg (HIGH ALERT MEDICATION, NOW).
== END 2016-11-29 21:45 | disposition home or self-care (01) ==
LOC: ED SRH 20:00
DX: M54.42 Lumbago with sciatica, left side (principal); G89.29 Other chronic pain; E11.9 Type 2 diabetes mellitus without complications; J44.9 Chronic obstructive pulmonary disease, unspecified; E78.5 Hyperlipidemia, unspecified; K21.9 Gastro-esophageal reflux disease without esophagitis; Z79.899 Other long term (current) drug therapy; I10 Essential (primary) hypertension; Z79.84 Long term (current) use of oral hypoglycemic drugs; Z79.4 Long term (current) use of insulin